=== PATIENT | female | born 1960 | race Caucasian/White ===

== ENCOUNTER 2020-04-26 13:37 | Emergency (ER) | payer OTHER ==
[~2020-04-26] VITALS: Ht 162.6 cm; Wt 70.3 kg
[2020-04-26] MEDS ORDERED: AMOCLA875 PO (14:11)
== END 2020-04-26 14:25 | disposition home or self-care (01) ==
LOC: ER 13:37
DX: S81.852A Open bite, left lower leg, initial encounter (principal); Z23 Encounter for immunization; Z88.5 Allergy status to narcotic agent; W55.01XA Bitten by cat, initial encounter
CPT/HCPCS: 90471; 90714; 99282-25; A9270

== ENCOUNTER 2021-01-29 04:57 | Day surgery (SDC) | payer OTHER ==
[~2021-01-29] VITALS: Ht 162.6 cm; Wt 72.3 kg
[~2021-01-29 04:57] MED LIST: AMOCLA875 PO
[2021-01-29] MEDS ORDERED: Prinivil10 MG PO (14:12)
--- NOTE | 2021-01-29 14:58 | NUR ---
01/29/21 [id number] GABI NORTON CALL LIGHT WITHIN REACH. BLOOD DRAWN ON LEFT AC. PT TOLERATED PROCEDURE WELL. 2X2 APPLIED WITH PREASSURE AND COBAN AFTER THE BLOOD DRAWN
== END 2021-01-29 16:50 | disposition home or self-care (01) ==
LOC: ORSCSDS 04:57
DX: S46.001A Unspecified injury of muscle(s) and tendon(s) of the rotator cuff of right shoulder, initial encounter (principal); M75.21 Bicipital tendinitis, right shoulder; M75.41 Impingement syndrome of right shoulder; Z53.9 Procedure and treatment not carried out, unspecified reason
CPT/HCPCS: J0171; J0690; J1100; J2250; J2405; J2704; J3010; J7120

== ENCOUNTER 2021-03-19 11:00 | Day surgery (SDC) | payer OTHER ==
[~2021-03-19] VITALS: Ht 162.6 cm; Wt 73.6 kg
[~2021-03-19 11:00] MED LIST changes: +Prinivil10 MG PO
--- NOTE | 2021-03-19 12:11 | NUR ---
03/19/21 1211 Stephanie Alexander 3 IV ATTEMPTS, FIRST BY KMB IN LFA INFILTRATED WHEN ATTEMPTING BLOOD DRAW, SECOND BY TMG IN HAND INFILTRATED ON BLOOD DRAW, THIRD ATTEMPT BYB TMG IN L FOREARM WAS SUCCESSFUL. BLOOD FOR PRP WAS DRAWN FROM L AC.
--- NOTE | 2021-03-19 13:36 | NUR ---
03/19/21 1336 Patti Wisdom 1 MG EPI ADDED TO EACH OF THE FIRST 3 BAGS OF LR PER ORDER FOR IRRIGATION.
== END 2021-03-19 15:55 | disposition home or self-care (01) ==
LOC: ORSCSDS 11:00
PROVIDERS: Orthopaedic Surgery
PROC: 0LM14ZZ Reattachment of Right Shoulder Tendon, Percutaneous Endoscopic Approach (ICD-10-PCS; principal; 2021-03-19 12:30)
PROC: 0LS34ZZ Reposition Right Upper Arm Tendon, Percutaneous Endoscopic Approach (ICD-10-PCS; principal; 2021-03-19 12:30)
PROC: 0RNJ4ZZ Release Right Shoulder Joint, Percutaneous Endoscopic Approach (ICD-10-PCS; principal; 2021-03-19 12:30)
DX: M75.121 Complete rotator cuff tear or rupture of right shoulder, not specified as traumatic (principal); M75.21 Bicipital tendinitis, right shoulder; M75.41 Impingement syndrome of right shoulder; I10 Essential (primary) hypertension; F41.8 Other specified anxiety disorders; Z79.899 Other long term (current) drug therapy
CPT/HCPCS: A9270; C1713; J0171; J0690; J1100; J2250; J2405; J2704; J3010; J7120